=== PATIENT | female | born 1930 | race Hispanic/Latino ===

== ENCOUNTER → 2018-08-10 | Outpatient (CLI) | payer MEDICARE, OTHER ==
[~2018-08-10] MED LIST: AMLODIPINE BESY10 MG PO; ATORVASTATIN CA20 MG PO; FOLIC ACID1 MG PO; LISINOPRIL10 MG PO; LYRICA50 MG PO; NAMENDA10 MG PO; PROTONIX40 MG/ML PO
--- NOTE | 2018-08-10 16:51 | Diagnostic Imaging Report ---
EXAM: FOOT COMPLETE BILATERAL, KNEE THREE VIEWS BILATERAL, ANKLE COMPLETE BILATERAL DATE: 08/10/2018 1:22 PM INDICATION: Fall, pain COMPARISON: None FINDINGS: Right knee: 4 views of the right knee shows diffuse demineralization. There is a healed fracture of the distal femoral shaft traversed by intramedullary prashanth and crossing screws. There is a partially visualized intramedullary prashanth extending down to the mid femoral level. Knee joint spaces are maintained. Extensive arterial calcification is noted. Left knee: 3 views of the left knee show no acute displaced fracture or dislocation. There is a healed fracture of the distal femoral shaft is supported by plate and screw fixation. There is residual deformity at the fracture site. Knee joint spaces are maintained. There is extensive vascular calcification and there are vascular stents extending along the superficial femoral and popliteal artery. Right ankle: 3 views of the right ankle show the bones demineralized. No displaced fracture or dislocation. The ankle mortise is symmetrically marginated. Degenerative changes are seen at the tibiotalar and fibulotalar joints. Small vessel arterial calcification is noted. Left ankle: 3 views of the left ankle show no displaced fracture or dislocation. Bones are demineralized. Ankle mortise is symmetrically marginated. Degenerative changes are seen at tibiotalar and fibulotalar joints. Small vessel arterial calcification noted. Right foot: 3 views of the right foot show the bones diffusely demineralized. No displaced fracture or dislocation. There is deformity of the first proximal phalanx with medial deviation of the first digit, possibly related to old trauma. Plantar calcaneal enthesophyte is noted. Small vessel arterial calcification is seen. Left foot: 3 views of the left foot shows diffuse bony demineralization. No displaced fracture or dislocation. A small plantar calcaneal enthesophyte is present. Small vessel calcification is seen. IMPRESSION: 1. No acute bony abnormality. 2. Diffuse bony demineralization. 3. Healed fractures of the distal femora traversed by hardware. Healed fracture of the right first proximal phalanx. Signed by: Dr. Bhupinder Chinchilla M.D. on 08/10/2018 4:48 PM
== END ==
LOC: RAD 13:05
PROVIDERS: ATTEND Internal Medicine
DX: M25.561 Pain in right knee (principal); M25.562 Pain in left knee; M25.571 Pain in right ankle and joints of right foot; M25.572 Pain in left ankle and joints of left foot; M79.671 Pain in right foot; M79.672 Pain in left foot; Z91.81 History of falling